=== PATIENT | male | born 2000 | race Caucasian/White ===

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

== ENCOUNTER 2019-08-31 17:17 | Emergency (ER) | payer SELFPAY ==
[~2019-08-31] VITALS: Ht 172.7 cm; Wt 72.7 kg
[2019-08-31 17:21] VITALS: BP 145/88; TEMP 98.3
[2019-08-31 19:15] VITALS: PULSE 64
== END 2019-08-31 19:15 | disposition home or self-care (01) ==
LOC: COL.ER 17:17
DX: S06.0X0A Concussion without loss of consciousness, initial encounter (principal); S01.511A Laceration without foreign body of lip, initial encounter; S01.81XA Laceration without foreign body of other part of head, initial encounter; W16.522A Jumping or diving into swimming pool striking bottom causing other injury, initial encounter; Y92.34 Swimming pool (public) as the place of occurrence of the external cause